=== PATIENT | male | born 1985 | race Caucasian/White ===

== ENCOUNTER 2020-07-29 08:59 | Outpatient (REF) | payer OTHER, SELFPAY ==
[2020-07-29 12:18] LABS: TSH reflex Free T4 0.66 uIU/mL (0.32-4.0)
[2020-07-29 12:22] LABS: Alanine Aminotransferase 34 U/L (0-40); Albumin Level 4.4 g/dL (3.5-5.0); Alkaline Phosphatase 64 U/L (39-117); Anion Gap 10 (12-20); Aspartate Amino Transferase 18 U/L (5-37); Blood Urea Nitrogen 19 mg/dL (9-16); Calcium 8.9 mg/dL (8.4-10.2); Carbon Dioxide 30 mmol/L (22-29); Chloride 105 mmol/L (96-108); Cholesterol 176 mg/dL; Estimated Glomerular Filt Rate > 60; Glucose Fasting 90 mg/dL (60-99); HDL Cholesterol 41 mg/dL; LDL Cholesterol Calculated 116 mg/dl; Sodium 141 mmol/L (135-145); Total Protein 6.6 g/dL (6.5-8.0); Triglycerides 98 mg/dL
== END 2020-07-29 09:00 | disposition home or self-care (01) ==
LOC: HO.HMGCLDS 08:59
PROVIDERS: PCP Nurse Practitioner Family; Visit Provider Nurse Practitioner Family
DX: Z00.00 Encounter for general adult medical examination without abnormal findings (principal)
CPT/HCPCS: 36415; 80053; 80061; 84443

== ENCOUNTER 2021-10-31 12:56 | Outpatient (REF) | payer OTHER, SELFPAY ==
[2021-10-31 13:31] LABS: Binax Internal Control QC Valid; Binax Now Covid-19 Ag Negative (Negative); Binax Performed by: HO.BONILM
[2021-10-31 13:41] LABS: MANUAL DIFF FLAG NO
[2021-10-31 13:50] LABS: Basophils Percent Auto 0.5 % (0-2); Eosinophils Absolute Auto 0.1 X10*3/uL (0.0-0.4); Eosinophils Percent Auto 1.3 % (0-4); Hematocrit 43.7 % (42.0-52.0); Hemoglobin 15.6 g/dl (14.0-18.0); Imm Gran Abs Auto 0.03 X10*3/uL (0.00-0.03); Imm Gran Pct Auto 0.4 % (0.0-0.4); Lymphocytes Absolute Auto 2.3 X10*3/uL (1.2-4.9); Lymphocytes Percent Auto 30.1 % (20-40); Mean Corpuscular HGB Conc 35.7 g/dl (31.0-36.0); Mean Corpuscular Hemoglobin 30.8 pg (27.0-33.0); Mean Corpuscular Volume 86.2 fL (80.0-98.0); Mean Platelet Volume 10.1 fL (9.4-12.4); Monocytes Absolute Auto 0.6 X10*3/uL (0.1-1.2); Monocytes Percent Auto 7.7 % (2-11); Neutrophils Absolute Auto 4.6 x10*3/uL (2.0-8.3); Platelet Count 192 X10*3/uL (160-400); Red Blood Count 5.07 X10*6/uL (4.60-5.80); Red Cell Distribution Width 12.1 % (11.0-16.0); White Blood Count 7.7 X10*3/uL (4.8-10.8)
[2021-10-31 14:09] LABS: Alanine Aminotransferase 61 U/L (0-40); Albumin Level 4.6 g/dL (3.5-5.0); Alkaline Phosphatase 56 U/L (39-117); Anion Gap 12 (12-20); Aspartate Amino Transferase 32 U/L (5-37); Bilirubin Direct 0.6 mg/dL (0.0-0.5); Bilirubin Total 1.8 mg/dL (0.0-1.0); Blood Urea Nitrogen 13 mg/dL (9-16); Calcium 9.6 mg/dL (8.4-10.2); Carbon Dioxide 25 mmol/L (22-29); Chloride 105 mmol/L (96-108); Estimated Glomerular Filt Rate > 60; Glucose Random 92 mg/dL (60-115); Lipase 16 U/L (8-78); Potassium 4.1 mmol/L (3.3-5.1); Sodium 138 mmol/L (135-145); Total Protein 7.1 g/dL (6.5-8.0)
== END 2021-10-31 12:57 | disposition home or self-care (01) ==
LOC: HO.HMGCLDS 12:56
PROVIDERS: PCP Nurse Practitioner Family; Visit Provider Physician Assistant
DX: Z20.822 Contact with and (suspected) exposure to COVID-19 (principal); R19.7 Diarrhea, unspecified; R53.1 Weakness
CPT/HCPCS: 80048; 80076; 83690; 85025; 87811

== ENCOUNTER → 2022-03-08 09:15 | Outpatient (RCR) | payer OTHER, SELFPAY ==
[2020-03-30 18:18] LABS: COVID-19 Test Negative (Negative)
[2020-04-06 08:25] LABS: COVID-19 Test Negative (Negative); IDNOW Serial# 55D5AD1C
[2020-04-13 08:17] LABS: IDNOW Serial# 9DD0AD1C
[2020-04-13 08:18] LABS: COVID-19 Test Positive (Negative)
[2020-05-03 10:02] LABS: SARS-COV-2 PCR UMBRL Not Detected
[2020-05-08 13:55] LABS: SARS-COV-2 PCR UMBRL NOT DETECTED
[2020-05-12 15:03] LABS: COVID-19 Test Negative (Negative); IDNOW Serial# 55D5AD1C
[2020-05-24 12:40] LABS: SARS-COV-2 PCR UMBRL Not Detected
[2020-05-27 09:20] LABS: SARS-COV-2 PCR UMBRL Not Detected
[2020-06-06 09:52] LABS: SARS-COV-2 PCR UMBRL NEGATIVE
[2020-06-11 11:06] LABS: SARS-COV-2 PCR UMBRL NEGATIVE
== END | disposition home or self-care (01) ==
LOC: HO.EMPCOV 03-30 14:18
PROVIDERS: Visit Provider Internal Medicine
DX: Z20.828 Contact with and (suspected) exposure to other viral communicable diseases (principal)
CPT/HCPCS: 36415; 87635; C9803; U0003

== ENCOUNTER 2022-03-28 21:46 | Outpatient (REF) | payer OTHER, SELFPAY ==
[2022-03-28 22:22] LABS: COVID-19 Test Negative (Negative)
== END 2022-03-28 21:47 | disposition home or self-care (01) ==
LOC: HO.LAB 21:46
PROVIDERS: Visit Provider Internal Medicine
DX: Z20.822 Contact with and (suspected) exposure to COVID-19 (principal)
CPT/HCPCS: 87635

== ENCOUNTER 2022-03-30 14:07 | Outpatient (REF) | payer OTHER, SELFPAY ==
[2022-03-30 16:02] LABS: Influenza A PCR NEGATIVE (Negative); Influenza B PCR NEGATIVE (Negative); Resp Syncy Virus RNA Qual PCR NEGATIVE (Negative); SARS COV2 PCR INHOUSE NEGATIVE (Negative)
== END 2022-03-30 14:08 | disposition home or self-care (01) ==
LOC: HO.LNP 14:07
PROVIDERS: Visit Provider Physician Assistant Medical
DX: Z20.822 Contact with and (suspected) exposure to COVID-19 (principal); R09.89 Other specified symptoms and signs involving the circulatory and respiratory systems
CPT/HCPCS: 0241U

== ENCOUNTER 2022-06-26 22:06 | Emergency (ER) | payer OTHER, SELFPAY ==
--- NOTE | ~2022-06-26 | XR_ITS ---
EXAMINATION: PORTABLE CHEST 1 VIEW CLINICAL INFORMATION: cp . COMPARISON: No recent pertinent prior studies are available for comparison. TECHNIQUE: Portable frontal view of the chest was obtained. FINDINGS: The lungs are well expanded. No focal infiltrate, effusion, edema, or pneumothorax. Cardiac and mediastinal silhouettes are within normal limits for technique. No acute bony abnormality seen. XR/XR chest 1V IMPRESSION: No evidence of acute disease.
[2022-06-26 22:16] VITALS: BP 135/79; PULSE 78; RESP 16; TEMP 36.9; O2SAT 98; BMI 26.2
--- NOTE | 2022-06-26 22:22 | ECG_ITS ---
Test Reason : chest pain Blood Pressure : / mmHG Vent. Rate : 067 BPM Atrial Rate : 067 BPM P-R Int : 128 ms QRS Dur : 084 ms QT Int : 374 ms P-R-T Axes : 044 080 046 degrees QTc Int : 395 ms Normal sinus rhythm Normal ECG No previous ECGs available Referred By: Mariah Ferris Electronically Signed By:GIOVANI WEINBERG MD
--- NOTE | 2022-06-26 22:24 | ED_ITS ---
HPI - Chest Pain General Chief Complaint: Chest Pain Stated Complaint: Chest Pain Time Seen by Provider: 06/26/22 22:14 History of Present Illness HPI narrative: Patient is a 36-year-old male presents today with having chest pain. Chest pain is on the left chest it lasted for the last half an hour it is sharp. It is not associated with any diaphoresis. Not associated with shortness of breath. 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 Positive history of smoking quit about 7 years ago. Has about 7 pack year smoking history. Positive family history of coronary artery disease father had GA before the age of 45. Patient denies any history of hypertension, hypercholesterolemia, GA. no history of leg swelling no history of blood clots. No history of recreational drug use. No fever no chills no cough no congestion or upper respiratory symptoms. No long trips. No history of cancer. Related Data Allergies Allergy/AdvReac Type Severity Reaction Status Date / Time No Known Allergies Allergy Verified 03/30/22 09:01 [No Known Allergies*] Review of Systems Review of Systems: Positive chest pain Yes all other systems are reviewed and are negative [facility] Past Medical History Attestation statement: The following information was validated with the patient. Family History Family History Father Colon cancer Heart problem HTN (hypertension) Mother No problems noted. Social History Social History Advance Directives: No Advance Directives Information Provided: Yes Physical Exam Vital Signs: Vital Signs: Last Vital Signs Temp 98.4 F 06/26/22 22:16 Pulse 78 06/26/22 22:16 Resp 16 06/26/22 22:16 BP 135/79 06/26/22 22:16 Pulse Ox 98 06/26/22 22:16 O2 Del Method 06/26/22 22:16 BMI result Body Mass Index 26.2 Appearance: Alert. Oriented X3. No acute distress. Eyes: Pupils equal, round and reactive to light. ENT: Pharynx normal. Neck: Normal inspection. Neck supple. No lymph nodes noted. No crepitus CVS: Normal heart rate and rhythm. Pulses normal. Normal S1 and S2 Respiratory: No respiratory distress. Breath sounds normal. No Wheezing. No rales Abdomen: Soft and nontender. No rigidity. No distention. good BS x4 Skin: Skin warm and dry. Normal skin color. Normal skin turgor. Extremities: No lower extremity edema. Neurovascular intact to all extremities. No Lacerations. No Rash Neuro: Oriented X 3. No motor deficit. No sensory deficit. Moving all extermities. No slurred speech Medications Administered Discontinued Medications Generic Name Dose Route Start Last Admin Trade Name Freq PRN Reason Stop Dose Admin Aspirin 324 mg 06/26/22 22:22 06/26/22 22:38 Aspirin 81 Mg Tab.Chew PO 06/26/22 22:23 324 mg ONCE ONE Administration Medical Decision Making Medical Decision Making [facility] Narrative: Patient's chest pain atypical. He is 36 years old to cardiac risk factors. Negative troponin x2 sets. Normal EKG. Symptoms unlikely secondary ACS as patient's heart score less than 3. Chest x-ray showed no pneumonia no pneumothorax. History not consistent with PE. Will discharge patient home. Stable condition. Differential Diagnosis Pulmonary emboli, pneumonia, pneumothorax, ACS Admission/Observation Consideration of admission/observation: Escalation of care including admission/observation considered Lab Data [facility] Lab Attestation statement: I reviewed the patient's lab results. 06/26/22 22:40 06/26/22 22:40 Labs: Lab Results 06/26/22 06/26/22 06/26/22 Range/Units 22:40 22:40 22:40 WBC 8.6 (4.8-10.8) X10*3/uL RBC 5.36 (4.60-5.80) X10*6/uL Hgb 16.5 (14.0-18.0) g/dl Hct 45.8 (42.0-52.0) % MCV 85.4 (80.0-98.0) fL MCH 30.8 (27.0-33.0) pg MCHC 36.0 (31.0-36.0) g/dl RDW 12.3 (11.0-16.0) % Plt Count 181 (160-400) X10*3/uL MPV 9.7 (9.4-12.4) fL Immature Gran % (Auto) 0.3 (0.0-0.4) % Neut % (Auto) 59.2 (45-73) % Lymph % (Auto) 29.9 (20-40) % [place] % (Auto) 7.7 (2-11) % Eos % (Auto) 2.0 (0-4) % Baso % (Auto) 0.9 (0-2) % Lymph # (Auto) 2.6 (1.2-4.9) X10*3/uL [place] # (Auto) 0.7 (0.1-1.2) X10*3/uL Eos # (Auto) 0.2 (0.0-0.4) X10*3/uL Baso # (Auto) 0.1 (0.0-0.2) X10*3/uL Abs Immat Gran (auto) 0.03 (0.00-0.03) X10*3/uL Absolute Neuts (auto) 5.1 (2.0-8.3) x10*3/uL Absolute Nucleated RBC 0.000 (0.0-0.012) X10*3/uL Nucleated RBC % (auto) 0.0 (0.0-0.2) /100WBC Sodium 141 (135-145) mmol/L Potassium 4.1 (3.3-5.1) mmol/L Chloride 105 (96-108) mmol/L Carbon Dioxide 27 (22-29) mmol/L Anion Gap 13 (12-20) BUN 19 H (9-16) mg/dL Creatinine 0.81 (0.5-1.4) mg/dL Estim Creat Clear Calc 130.1 Estimated GFR > 60 Random Glucose 80 (60-115) mg/dL Calcium 9.2 (8.4-10.2) mg/dL Troponin I High Sens < 3.5 (<3.5-35.0) ng/L 06/27/22 Range/Units 00:28 WBC (4.8-10.8) X10*3/uL RBC (4.60-5.80) X10*6/uL Hgb (14.0-18.0) g/dl Hct (42.0-52.0) % MCV (80.0-98.0) fL MCH (27.0-33.0) pg MCHC (31.0-36.0) g/dl RDW (11.0-16.0) % Plt Count (160-400) X10*3/uL MPV (9.4-12.4) fL Immature Gran % (Auto) (0.0-0.4) % Neut % (Auto) (45-73) % Lymph % (Auto) (20-40) % [place] % (Auto) (2-11) % Eos % (Auto) (0-4) % Baso % (Auto) (0-2) % Lymph # (Auto) (1.2-4.9) X10*3/uL [place] # (Auto) (0.1-1.2) X10*3/uL Eos # (Auto) (0.0-0.4) X10*3/uL Baso # (Auto) (0.0-0.2) X10*3/uL Abs Immat Gran (auto) (0.00-0.03) X10*3/uL Absolute Neuts (auto) (2.0-8.3) x10*3/uL Absolute Nucleated RBC (0.0-0.012) X10*3/uL Nucleated RBC % (auto) (0.0-0.2) /100WBC Sodium (135-145) mmol/L Potassium (3.3-5.1) mmol/L Chloride (96-108) mmol/L Carbon Dioxide (22-29) mmol/L Anion Gap (12-20) BUN (9-16) mg/dL Creatinine (0.5-1.4) mg/dL Estim Creat Clear Calc Estimated GFR Random Glucose (60-115) mg/dL Calcium (8.4-10.2) mg/dL Troponin I High Sens < 3.5 (<3.5-35.0) ng/L Independent Interpretation I performed an independent interpretation of an: EKG Interpretation: Sinus heart rate is 67 LA QRS QT within normal limits is no acute ST segment elevation noted. Discharge Plan Discharge Clinical Impression: Chest pain Patient Disposition: Home, Self-Care Instructions: Chest Pain (ED) Referrals: John Sarah MD [Physician] -
[2022-06-26] MEDS: Aspirin 81 MG TAB.CHEW 324 MG PO (22:38)
[2022-06-26 22:44] LABS: MANUAL DIFF FLAG NO
[2022-06-26 22:52] LABS: Basophils Absolute Auto 0.1 X10*3/uL (0.0-0.2); Basophils Percent Auto 0.9 % (0-2); Eosinophils Absolute Auto 0.2 X10*3/uL (0.0-0.4); Hematocrit 45.8 % (42.0-52.0); Hemoglobin 16.5 g/dl (14.0-18.0); Imm Gran Abs Auto 0.03 X10*3/uL (0.00-0.03); Imm Gran Pct Auto 0.3 % (0.0-0.4); Lymphocytes Absolute Auto 2.6 X10*3/uL (1.2-4.9); Lymphocytes Percent Auto 29.9 % (20-40); Mean Corpuscular Hemoglobin 30.8 pg (27.0-33.0); Mean Corpuscular Volume 85.4 fL (80.0-98.0); Mean Platelet Volume 9.7 fL (9.4-12.4); Monocytes Absolute Auto 0.7 X10*3/uL (0.1-1.2); Monocytes Percent Auto 7.7 % (2-11); Neutrophils Absolute Auto 5.1 x10*3/uL (2.0-8.3); Neutrophils Percent Auto 59.2 % (45-73); Platelet Count 181 X10*3/uL (160-400); Red Blood Count 5.36 X10*6/uL (4.60-5.80); Red Cell Distribution Width 12.3 % (11.0-16.0); White Blood Count 8.6 X10*3/uL (4.8-10.8)
[2022-06-26 23:05] LABS: Anion Gap 13 (12-20); Blood Urea Nitrogen 19 mg/dL (9-16); Calcium 9.2 mg/dL (8.4-10.2); Carbon Dioxide 27 mmol/L (22-29); Chloride 105 mmol/L (96-108); Creatinine Clr Calc Pharmacy 130.1; Estimated Glomerular Filt Rate > 60; Glucose Random 80 mg/dL (60-115); Potassium 4.1 mmol/L (3.3-5.1); Sodium 141 mmol/L (135-145)
[2022-06-26 23:19] LABS: Troponin-I High Sensitivity < 3.5 ng/L (<3.5-35.0)
[2022-06-27 01:01] LABS: Troponin-I High Sensitivity < 3.5 ng/L (<3.5-35.0)
== END 2022-06-27 01:40 | disposition home or self-care (01) ==
PROVIDERS: Emergency Provider Emergency Medicine Emergency Medical Services; PCP Nurse Practitioner Family
DX: R07.9 Chest pain, unspecified (principal); Z87.891 Personal history of nicotine dependence
CPT/HCPCS: 36415; 71045; 80048; 84484; 85025; 93005; 99283

== ENCOUNTER 2022-11-09 12:23 | Outpatient (REF) | payer OTHER, SELFPAY ==
--- NOTE | ~2022-11-09 | XR_ITS ---
EXAMINATION: XR HAND, LEFT CLINICAL INFORMATION: Left COMPARISON: None available. TECHNIQUE: PA, lateral, and oblique views of the left hand. FINDINGS: No fracture, dislocation or destructive process. Joint spaces are well preserved. No erosive change. XR/XR hand LT min 3V IMPRESSION: Unremarkable study.
== END 2022-11-09 12:24 | disposition home or self-care (01) ==
LOC: HO.HMGCX 12:23
PROVIDERS: PCP Nurse Practitioner Family; Visit Provider Physician Assistant
DX: M79.642 Pain in left hand (principal)
CPT/HCPCS: 73130

== ENCOUNTER 2022-11-27 10:09 | Outpatient (AMB) | payer OTHER, SELFPAY ==
--- NOTE | 2022-11-27 10:48 | MHC.OFFWIV ---
Intake Vital Signs 11/27/22 10:52 BP 130/86 Blood Pressure Location Lt brachial Position Sitting Pulse 86 Pulse Source Pulse Oximeter Pulse Oximetry (%) 97 Oxygen Delivery Method Room Air Intake Visit Reasons: EP, Right Ankle, swelling, pinky toe Inj Intake Note: Patient here because he fell off a platform while dancing and heard a pop and has been unable to put pressure on right foot. He also states his pinky toe on left foot is broken as it is very bruised . Patient Tobacco Use Status: Former Tobacco user (10 years ago) Allergies No Known Allergies [No Known Allergies*] Allergy (Verified 11/27/22 10:52) Do you need a note to return to daycare/school/sports/work: Yes HPI EP, Right Ankle, swelling, pinky toe Inj HPI Details 37-year-old male presents to the office for a sick visit. Patient fell 2 nights ago and injured his right foot. He is unable to bear weight on the right foot. Using crutches and now has discomfort in the left foot as he has been bearing extra weight on the left foot. [facility] Family History Father Colon cancer Heart problem HTN (hypertension) Mother No problems noted. Social History Patient Tobacco Use Status: Former Tobacco user (10 years ago) Physical Exam Vital Signs: Last Vital Signs Pulse 86 11/27/22 10:52 BP 130/86 11/27/22 10:52 Pulse Ox 97 11/27/22 10:52 Oxygen Delivery Method Room Air 11/27/22 10:52 Extrem Other: Right foot: Bruising over the foot with bluish discoloration at the margin. Malleolli are swollen. Extreme pain on flexion. Left foot: Bruising and contusion over the left 5th toe. Pain on flexion. Assessment & Plan Assessment & Plan (1) Fracture of ankle, bimalleolar, right, closed: Code(s): S82.841A - Displaced bimalleolar fracture of right lower leg, initial encounter for closed fracture Plan: X-rays were personally reviewed by me. Patient has a fracture at the malleoli. Anti-inflammatory called in. Patient had orthopedic appointment scheduled. Meloxicam has been called in. Note for work given. Orders: Orders XR ankle RT min 3V Today S90.30XA - Contusion of unspecified foot, initial encounter, S93.401A - Sprain of unspecified ligament of right ankle, initial encounter Referrals Orthopedics Referral S82.841A - Displaced bimalleolar fracture of right lower leg, initial encounter for closed fracture Coding Level of Care Code Est Pt Level 4 (19890) Diagnoses Fracture of ankle, bimalleolar, right, closed S82.841A
[2022-11-27 10:52] VITALS: BP 130/86; PULSE 86; O2SAT 97
== END 2022-11-27 11:58 | disposition home or self-care (01) ==
PROVIDERS: PCP Nurse Practitioner Family; Visit Provider Internal Medicine
DX: S82.841A Displaced bimalleolar fracture of right lower leg, initial encounter for closed fracture (principal)
CPT/HCPCS: 99214

== ENCOUNTER 2022-11-27 11:16 | Outpatient (REF) | payer OTHER, SELFPAY | END 2022-11-27 11:17 | disposition home or self-care (01) | LOC: HO.HMGCX 11:16 | PROVIDERS: PCP Nurse Practitioner Family; Visit Provider Internal Medicine | DX: S93.401A Sprain of unspecified ligament of right ankle, initial encounter (principal); S90.32XA Contusion of left foot, initial encounter | CPT/HCPCS: 73610; 73630 ==

== ENCOUNTER 2022-12-07 14:22 | Outpatient (AMB) | payer OTHER, SELFPAY ==
--- NOTE | 2022-12-07 14:50 | A.OFFVIS_ITS ---
Intake Intake Visit Reasons: FC - right ankle fx, DOI 11/27/22 Intake Note: Marlon is a 37 year old male who presents today for a fracture care for his right ankle fx, DOI 11/27/22. Patient reports he fell off a platform while dancing and heard a pop and has been unable to put pressure on right foot. He states his pain is at a 2/10 on the pain scale. Patient reports his ROM is good. Denies numbness and tingling. Allergies No Known Allergies [No Known Allergies*] Allergy (Verified 12/07/22 14:52) HPI FC - right ankle fx, DOI 11/27/22 HPI Details 37-year-old right hand dominant male who presents in the office today, as a new patient, for an evaluation of right ankle pain. The patient presented to the Walk-in clinic on 11/27/2022 status post falling off a platform while dancing when in [place] on a vacation. X-rays were obtained. He states he was not given anything for the ankle. He purchased a splint OTC that he has been wearing. He states he has not been bearing weight on the right lower extremity. He states his pain is a 2/10 while in the office today. He claims his ROM is good. He denies numbness or tingling. 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 Patient has no known allergy history. Patient is currently taking, as follows: -Venlafaxine ER 150 mg PO bedtime Patient has no known medical history. Patient has no known surgical history. Patient has a social history, as follows: -Prior tobacco user (10 years ago) -Alcohol; current [facility] Family History Father Colon cancer Heart problem HTN (hypertension) Mother No problems noted. Social History (Updated 12/07/22 @ 14:54 by Carli Myers) Alcohol intake: current Patient Tobacco Use Status: Former Tobacco user (10 years ago) Current occupational status: employed Current occupation: Nurse/ right hand dominant Review of Systems Const All systems reviewed & are unremarkable except as noted in HPI and below Physical Exam Const General: cooperative, healthy appearing, comfortable, no acute distress, well developed and alert Orientation/consciousness: patient oriented x3 HEENT Head: Yes normal to inspection, Yes normocephalic and Yes atraumatic Eyes General: appearance normal, both eyes and all related structures Resp Effort & Inspection: normal respiratory effort and able to speak in complete sentences Cardio Rate: regular rate Peripheral pulses: Peripheral pulses 2+ throughout GI Palpation (GI): Soft to palpation Skin Lesions: no lesions Rashes: no rashes Neuro General: patient oriented x3 Extrem Other: Right ankle: Circumferential edema. Tenderness to palpation over the medial and lateral malleolus. Able to move all digits. Sensation intact. Pedal pulse intact. Office Procedures Casting/Splints [id number] Leg splint application Procedure code (CPT) selection complete Assessment & Plan Assessment & Plan (1) Fracture of ankle, bimalleolar, right, closed: Code(s): S82.841A - Displaced bimalleolar fracture of right lower leg, initial encounter for closed fracture Plan Mr. Landis is a 37-year-old right hand dominant male who presents in the office today, as a new patient, for an evaluation of right ankle pain. The patient presented to the Walk-in clinic on 11/27/2022 status post falling off a platform while dancing when in [place] on a vacation. X-rays were obtained. He states he was not given anything for the ankle. He purchased a splint OTC that he has been wearing. He states he has not been bearing weight on the right lower extremity. He states his pain is a 2/10 while in the office today. He claims his ROM is good. He denies numbness or tingling. 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 Patient has no known allergy history. Patient is currently taking, as follows: -Venlafaxine ER 150 mg PO bedtime Patient has no known medical history. Patient has no known surgical history. Patient has a social history, as follows: -Prior tobacco user (10 years ago) -Alcohol; current Dr. Burgos was available to see the patient with me while in the office today and a collaborative treatment plan was made. He discussed the role of a right ankle ORIF. I discussed in detail the procedure and what to expect pre and post operatively. We discussed the risks, benefits and alternatives to the surgery as well as the rehabilitation course. The risks; which include, but are not limited to infecti on, bleeding, nerve injury, ongoing pain, swelling, and stiffness, perioperative risk of injury to bones and soft tissues, and blood clots. I have answered all questions and with their understanding they have consented to move forward with a right ankle ORIF to be performed on Sunday12/12/[address] Bob Burgos. He will be placed in a posterior splint, off the shelf, while in the office toda y. Follow up will be at his post operative appointment, or sooner if needed. X-rays of the right ankle which were obtained while in the office today and were reviewed by me, Vandana Blanco PA-C, are significant for a right ankle trimalleolar fracture. X-rays of the right ankle, obtained on 11/27/2022, revealed: Mildly displaced, oblique fracture through the distal fibular metaphysis. Mildly displaced medial malleolar fracture with the fracture gap measuring up to 0.5 cm. Circumferential soft tissue swelling. Orders: Orders XR ankle RT min 3V Today M25.579 - Pain in unspecified ankle and joints of unspecified foot Patient Instructions: Scribed for Vandana Blanco PA-C by Aminata Nicholas ophthalmic medical technologist, on 12/07/2022 at 2:28 pm, EST. Your attestation Coding Level of Care Code New Pt Level 4 (10790) Diagnoses Fracture of ankle, bimalleolar, right, closed S82.841A CPT Codes Splint - CPT: 52429-Fjrwy Leg splint application ([id number])
== END 2022-12-07 15:41 | disposition home or self-care (01) ==
PROVIDERS: PCP Nurse Practitioner Family; Visit Provider Physician Assistant
DX: S82.841A Displaced bimalleolar fracture of right lower leg, initial encounter for closed fracture (principal)
CPT/HCPCS: 99204

== ENCOUNTER 2022-12-07 14:22 | Outpatient (REF) | payer OTHER, SELFPAY ==
--- NOTE | ~2022-12-07 | XR_ITS ---
EXAMINATION: XR ANKLE, RIGHT CLINICAL INFORMATION: Right ankle pain. COMPARISON: 11/27/2022 TECHNIQUE: AP, lateral, and mortise views of the right ankle. FINDINGS: Right Ankle: Redemonstration of mildly displaced, oblique fracture through the distal fibular metaphysis with up to 0.7 cm step-off posteriorly, similar. Redemonstration of mildly displaced medial malleolar fracture with the fracture gap again measuring up to 0.5 cm. Fracture line extends to the tibial plafond articular surface, ankle joint effusion. Diffuse soft tissue swelling at the ankle. XR/XR ankle RT min 3V IMPRESSION: 1. Redemonstration of mildly displaced, oblique fracture through the distal fibular metaphysis with up to 0.7 cm step-off posteriorly, similar. 2. Redemonstration of mildly displaced medial malleolar fracture with the fracture gap again measuring up to 0.5 cm, similar.
== END 2022-12-07 14:23 | disposition home or self-care (01) ==
LOC: HO.HOSX 14:22
PROVIDERS: PCP Nurse Practitioner Family; Visit Provider Physician Assistant
DX: Z01.818 Encounter for other preprocedural examination (principal); S82.841A Displaced bimalleolar fracture of right lower leg, initial encounter for closed fracture
CPT/HCPCS: 73610

== ENCOUNTER 2022-12-12 07:25 | Day surgery (SDC) | payer OTHER, SELFPAY ==
[2022-12-12] VITALS (9 sets, daily range): BP systolic 99–119; BP diastolic 62–79; PULSE 72–89; RESP 16–18; TEMP 36.2–37.3; O2SAT 95–98; BMI 25.8
--- NOTE | ~2022-12-12 | FL_ITS ---
EXAMINATION: XR FLUOROSCOPY WITH IMAGES CLINICAL INFORMATION: Right ankle open reduction and internal fixation. COMPARISON: Radiograph's of the ankle from 12/07/2022 TECHNIQUE: Fluoroscopy Supervised By: Dr. Burgos. Fluoroscopy Time: 0.3 minutes Cumulative Dose: 1.26 mGy. DAP: 0.0218 mGym2. Images: 3. FL/FL guidance in OR FINDINGS AND IMPRESSION: Intraoperative fluoroscopic imaging of the right ankle is performed. Two partially threaded cannulated fixation screws have reduced the medial malleolar fracture. Lateral fibular plate and screws have reduced the spiral fracture of the distal fibular metadiaphysis into near anatomic position. Bones have normal alignment at the ankle. The talus is well-positioned within the mortise on these postoperative views.
[2022-12-12] MEDS: Lactated Ringers 1,000 ML 100 ML IVCONT (08:09)
--- NOTE | 2022-12-12 08:46 | HO.ANESPROP2 ---
Documented by User: Jovita Nunes NP 12/11/22 08:29 HPI - Anesthesia Eval Consult details Narrative: 37yo M for Right Ankle Fracture ORIF PMFSH Active Problems Active Problems: All Active Problems (Updated 11/27/22 @ 11:48 by Osiel Burgos MD) Fracture of ankle, bimalleolar, right, closed (Acute) Contusion, foot (Acute) Physical exam (Acute) Depression (Acute) Family History Family History Father Colon cancer Heart problem HTN (hypertension) Mother No problems noted. Social History Social History Alcohol intake: current Patient Tobacco Use Status: Former Tobacco user Quit Date: 12 years Use of substances other than those prescribed or required for medical reasons: Yes Are you DNR?: No Advance Directives: No Advance Directives Information Provided: Yes Current occupational status: employed Current occupation: Nurse/ right hand dominant Meds Allergies Allergy/AdvReac Type Severity Reaction Status Date / Time No Known Allergies Allergy Verified 12/07/22 14:52 [No Known Allergies*] Home Medications Medication Instructions Recorded Confirmed Last Taken Type venlafaxine 150 mg 150 mg PO BEDTIME 11/09/22 12/12/22 12/11/22 History capsule,extended release 24 hr (Effexor XR) Exam Exam Date and Time: December 11, 2022827 Pertinent Lab Results Pertinent Lab Results: Laboratory Tests 06/26/22 06/26/22 22:40 22:40 WBC 8.6 Hgb 16.5 Hct 45.8 Plt Count 181 Sodium 141 Potassium 4.1 Chloride 105 Carbon Dioxide 27 BUN 19 H Creatinine 0.81 Assessment and Plan Assessment Anesthesia Assessment: Chart Reviewed Documented by User: Rachel Zarco DO 12/12/22 08:46 PMFSH Family History Family History Father Colon cancer Heart problem HTN (hypertension) Mother No problems noted. Family history of problems with anesthesia: No Surgical History History of Problems with Anesthesia: No Social History Social History Alcohol intake: current Patient Tobacco Use Status: Former Tobacco user Quit Date: 12 years Use of substances other than those prescribed or required for medical reasons: Yes Are you DNR?: No Advance Directives: No Advance Directives Information Provided: Yes Current occupational status: employed Current occupation: Nurse/ right hand dominant Meds Allergies Allergy/AdvReac Type Severity Reaction Status Date / Time No Known Allergies Allergy Verified 12/07/22 14:52 [No Known Allergies*] Home Medications Medication Instructions Recorded Confirmed Last Taken Type venlafaxine 150 mg 150 mg PO BEDTIME 11/09/22 12/12/22 12/11/22 History capsule,extended release 24 hr (Effexor XR) Exam Exam Date and Time: December 12, 2022 0835 Height,Weight and Vital Signs: Height 5 ft 10 in Weight 81.647 kg Vital Signs Temperature 97.2 F 12/12/22 08:01 Pulse Rate 72 12/12/22 08:01 Respiratory Rate 18 12/12/22 08:01 Blood Pressure 119/79 12/12/22 08:01 Pulse Oximetry 97 12/12/22 08:01 Oxygen Delivery Method Room Air 12/12/22 08:01 Temperature 97.2 F 12/12/22 08:01 Pulse Rate 72 12/12/22 08:01 Respiratory Rate 18 12/12/22 08:01 Blood Pressure 119/79 12/12/22 08:01 Pulse Oximetry 97 12/12/22 08:01 Oxygen Delivery Method Room Air 12/12/22 08:01 Airway Mallampati Class: II TM Dist: >3cm Neck ROM: Full Loose/Missing/Broken Teeth: No Heart: S1S2 Lungs: CTAB Assessment and Plan Assessment Anesthesia Assessment: Anesthesia Plan Discussed and Chart Reviewed Final Anesthetic Review Family History of Problems with Anesthesia: No History of Problems with Anesthesia: No NPO: Yes ASA Class: I Final Preanesthetic Review: No Changes in Pt Med Stat, Meds/Allgs Chart Reviewed, Consent Obtained/Reviewed and Anes Risks/Benef Reviewed Patient Risk: Low Procedure Risk: Low Assessment/Block/Sedation in SS: Assess/Block/Sedation-SS Anesthetic Plan Anesthetic Plan: GA, Regional Block (right sciatic and saphenous block) and Agree w/ Assess. and Plan Disposition: Standard PACU
--- NOTE | 2022-12-12 09:27 | MHC.SHP ---
Pre-Procedural Eval Section A Date of Service: 12/12/22 The patient is an INPATIENT: No Changes since office visit: No Cold of Flu in the past 2 weeks, No New Medical Problems, No Changes in Medication and No Patient answered all questions The History & Physical has been completed within 30 days and I have reviewed it.: Yes Section B Chief Complaint: Pain in unspecified ankle & joints of unspecified Allergies: Allergies Allergy/AdvReac Type Severity Reaction Status Date / Time No Known Allergies Allergy Verified 12/07/22 14:52 [No Known Allergies*] Plan I have reviewed the history and physical and performed a pertinent physical examination on my patient. No changes have occurred unless specified. Time Spent With Patient Time: Total time managing care of this patient today ____ minutes.
--- NOTE | 2022-12-12 11:16 | P.BOP_ITS ---
Brief Operative Note Date of Service: 12/12/22 Pre-op diagnosis: right daniella Post-op diagnosis: same Procedure: ORIF right daniella Implants: [place] Surgeon: Bob Burgos MD Anesthesia: GETA and regional Was an Commercial Front Load Operator used for this Procedure?: Yes Commercial Front Load Operator: Edmond Mosley Estimated blood loss (mL): 50 Tourniquet time (min): 75 IV fluids (mL): 1,000 Pathology: none sent Condition: stable Disposition: PACU
--- NOTE | 2022-12-12 11:26 | P.OP_ITS ---
Operative Note Operative Note Date of Service: 12/12/22 Narrative: Date of Service: 12/12/22 Pre-op diagnosis: right daniella Post-op diagnosis: same Procedure: ORIF right daniella Implants: [place] Surgeon: Bob Burgos MD Anesthesia: GETA and regional Was an Associate Partner used for this Procedure?: Yes Associate Partner: Edmond Mosley Estimated blood loss (mL): 50 Tourniquet time (min): 75 IV fluids (mL): 1,000 Pathology: none sent Condition: stable Disposition: PACU Procedure in detail: Patient was brought to the operating room and placed supine on the operative table. All bony prominences were well padded and a time-out was called to identify proper site proper procedure proper surgeon. IV antibiotics per weight were administered. I began by exsanguinating limb is slightly tourniquet to 300 mm Hg. I then made a standard posterolateral incision over the fibula. Full- thickness flaps were taken down to the fibular shaft and distal fibula. The fracture was identified and cleaned with a combination of curette, rongeur and irrigation. A lobster claw was used to provisionally reduce the fracture and a 6 hole distal fibular locking plate was applied using standard AO technique. Biplanar fluoroscopy was used to confirm hardware position and fracture reduction. Once I was satisfied that both of these were acceptable I irrigated copiously and turned my attention to the medial side. The transverse medial malleolar fracture was identified after skin incision. Full-thickness skin flaps were developed and, With a sharp tenaculum, the fracture was reduced. 2 threaded K-wires were then placed from distal to proximal and perpendicular to the fracture. Biplanar fluoroscopy was used to confirm positioning and then they were overdrilled and 2 40 mm 4.0 partially- threaded cannulated cancellous screws were placed across the fracture. I was satisfied with the position and the fracture reduction based on biplanar fluoroscopy. This syndesmosis was tested using external rotation test and was found to be stable. Therefore all instrumentation was removed and copious irrigation was performed. Absorbable suture and nate were used for closure and the patient was placed into sterile dressings and a well-padded posterior splint. Tourniquet was let down and the patient was extubated brought to recovery room in stable condition there were no known complications.
== END 2022-12-12 13:30 | disposition home or self-care (01) ==
PROVIDERS: PCP Nurse Practitioner Family; Visit Provider Orthopaedic Surgery
PROC: (CPT 27814; principal; 2022-12-12 09:40)
DX: S82.841A Displaced bimalleolar fracture of right lower leg, initial encounter for closed fracture (principal); M25.571 Pain in right ankle and joints of right foot; W17.89XA Other fall from one level to another, initial encounter; Y93.41 Activity, dancing; Y92.89 Other specified places as the place of occurrence of the external cause; Y99.8 Other external cause status; Z87.891 Personal history of nicotine dependence
CPT/HCPCS: 27814; C1713; J0131; J0171; J0690; J1100; J2250; J2405; J2795; J3010

== ENCOUNTER → 2022-12-12 07:25 | Outpatient (BNV) | payer OTHER, SELFPAY | PROVIDERS: PCP Nurse Practitioner Family; Visit Provider Orthopaedic Surgery | DX: S82.841A Displaced bimalleolar fracture of right lower leg, initial encounter for closed fracture (principal) | CPT/HCPCS: 27814 ==

== ENCOUNTER 2022-12-19 14:22 | Outpatient (AMB) | payer OTHER, SELFPAY ==
--- NOTE | 2022-12-19 14:25 | A.OFFVIS_ITS ---
Intake Vital Signs 12/19/22 14:31 Height 5 ft 10 in Weight 185 lb BMI 26.5 Intake Visit Reasons: PO RT ANKLE ORIF 12/12/22NE Intake Note: Marlon is a 37 year old male who presents today for a post op appointment s/p ORIF right daniella, 12/12/22 NE. Patient reports no pain at the moment but having more discomfort during the night. Denies numbness and tingling. Allergies No Known Allergies [No Known Allergies*] Allergy (Verified 12/19/22 14:31) HPI PO RT ANKLE ORIF 12/12/22NE HPI Details 37-year-old right hand dominant male who presents in the office today 1 week status post right ankle ORIF, which was performed on 12/12/[address] Burgos. The patient reports no pain while in the office today. He confirms discomfort during the night. He denies numbness or tingling. PFSH Family History Father Colon cancer Heart problem HTN (hypertension) Mother No problems noted. Social History Alcohol intake: current Patient Tobacco Use Status: Former Tobacco user Quit Date: 12 years Current occupational status: employed Current occupation: Nurse/ right hand dominant Review of Systems Const All systems reviewed & are unremarkable except as noted in HPI and below Physical Exam Vital Signs: BMI result Body Mass Index 26.5 Const General: cooperative, healthy appearing and no acute distress Resp Effort & Inspection: normal respiratory effort and able to speak in complete sentences Cardio Rate: regular rate Peripheral pulses: Peripheral pulses 2+ throughout GI Palpation (GI): Soft to palpation Skin Lesions: no lesions Rashes: no rashes Extrem Other: Right ankle: Incision site is clean, dry, and intact. [place] intact. No surrounding erythema or drainage. No signs of infection. Able to dorsiflex and plantarflex. Sensation intact. Pedal pulse intact. Assessment & Plan Assessment & Plan (1) Fracture of ankle, bimalleolar, right, closed: Code(s): S82.841A - Displaced bimalleolar fracture of right lower leg, initial encounter for closed fracture Plan Mr. Landis is a 37-year-old right hand dominant male who presents in the office today 1 week status post right ankle ORIF, which was performed on 12/12/[address] Burgos. The patient reports no pain while in the office today. He confirms discomfort during the night. He denies numbness or tingling. [place] will remain intact for an additional week. He was placed back into the posterior splint that was custom molded in the operating room. He will remain non-weight bearing. Follow up will be in 1 weeks with repeat x-rays, or sooner if needed. Patient Instructions: Scribed for Vandana Blanco PA-C by Aminata Nicholas medical anthropology director, on 12/19/2022 at 2:26 pm, EST. Your attestation Coding Level of Care Code Global (30106) Diagnoses Fracture of ankle, bimalleolar, right, closed S82.841A
[2022-12-19 14:31] VITALS: BMI 26.5
== END 2022-12-19 14:56 | disposition home or self-care (01) ==
PROVIDERS: PCP Nurse Practitioner Family; Visit Provider Physician Assistant
DX: S82.841A Displaced bimalleolar fracture of right lower leg, initial encounter for closed fracture (principal)
CPT/HCPCS: 99024

== ENCOUNTER → 2022-12-19 14:22 | Outpatient (BNVA) | payer OTHER, SELFPAY | PROVIDERS: PCP Nurse Practitioner Family; Visit Provider Physician Assistant ==

== ENCOUNTER 2022-12-25 11:17 | Outpatient (REF) | payer OTHER, SELFPAY | END 2022-12-25 11:18 | disposition home or self-care (01) | LOC: HO.HOSX 11:17 | PROVIDERS: Visit Provider Physician Assistant | DX: Z13.89 Encounter for screening for other disorder (principal) ==

== ENCOUNTER 2022-12-28 12:53 | Outpatient (REF) | payer OTHER, SELFPAY ==
--- NOTE | ~2022-12-28 | XR_ITS ---
EXAMINATION: XR ANKLE, RIGHT CLINICAL INFORMATION: Pain in unspecified ankle and joints of unspecified foot COMPARISON: Right ankle 12/07/2022 TECHNIQUE: AP, lateral, and mortise views of the right ankle. FINDINGS: Plate and screws are seen transfixing a oblique fracture the distal fibular metaphysis skin nate are seen over this area. Ghost tracks are also seen in the distal fibular metaphysis. 2 screws transfix previously noted medial malleolar fracture. Skin nate are noted over this area. The ankle mortise is well-maintained. There is a small ankle joint effusion. The hardware is intact. No new acute bony abnormality. XR/XR ankle RT min 3V IMPRESSION: Status post ORIF distal fibula and medial malleolus without evidence of hardware complication.
== END 2022-12-28 12:54 | disposition home or self-care (01) ==
LOC: HO.HOSX 12:53
PROVIDERS: Visit Provider Physician Assistant
DX: S82.841D Displaced bimalleolar fracture of right lower leg, subsequent encounter for closed fracture with routine healing (principal)
CPT/HCPCS: 29405; 73610

== ENCOUNTER 2022-12-28 13:41 | Outpatient (AMB) | payer OTHER, SELFPAY ==
--- NOTE | 2022-12-28 13:42 | MHC.OFFVIS ---
Intake Vital Signs 12/28/22 13:43 Height 5 ft 10 in Weight 185 lb BMI 26.5 Intake Visit Reasons: PO RT ANKLE ORIF 12/12/22NE Intake Note: Marlon is a 37 year old male who presents today for a post op appointment s/p ORIF right daniella, 12/12/22 NE. Patient reports some discomfort at night near the incision site. He states that his pain is at a 1/10 on the pain scale. Allergies No Known Allergies [No Known Allergies*] Allergy (Verified 12/28/22 13:43) HPI PO RT ANKLE ORIF 12/12/22NE HPI Details 37-year-old right hand dominant male who presents in the office today 2 week status post right ankle ORIF, which was performed on 12/12/[address] Burgos. The patient reports some discomfort. Patient is an employee at [employer]. [facility] Family History Father Colon cancer Heart problem HTN (hypertension) Mother No problems noted. Social History Alcohol intake: current Patient Tobacco Use Status: Former Tobacco user Quit Date: 12 years Current occupational status: employed Current occupation: Nurse/ right hand dominant Review of Systems Const All systems reviewed & are unremarkable except as noted in HPI and below Physical Exam Vital Signs: BMI result Body Mass Index 26.5 Const General: cooperative, healthy appearing and no acute distress Resp Effort & Inspection: normal respiratory effort and able to speak in complete sentences Cardio Rate: regular rate Peripheral pulses: Peripheral pulses 2+ throughout GI Palpation (GI): Soft to palpation Skin Lesions: no lesions Rashes: no rashes Extrem Other: Right ankle: Normal to inspection. Circumfrencial edema. Incision site is clean, dry, and intact. Staple intact. No surrounding erythema or drainage. Able to slightly dorsiflex and plantarflex. Sensation intact. Pedal pulse intact. Office Procedures Casting/Splints 74203-[id number] Leg Cast Application Procedure code (CPT) selection complete Assessment & Plan Assessment & Plan (1) Fracture of ankle, bimalleolar, right, closed: Comment: Right ankle ORIF 12/12/2022 NE Code(s): S82.841A - Displaced bimalleolar fracture of right lower leg, initial encounter for closed fracture Plan Mr. Landis is a 37-year-old right hand dominant male who presents in the office today 2 week status post right ankle ORIF, which was performed on 12/12/[address] Burgos. The patient reports some discomfort. Patient is an employee at [employer]. [place] were removed and steri-stripes were applied. He was placed in custom made short leg cast while in the office today. He will remain non-weight bearing. Follow up will be in 4 weeks, or sooner if needed. Of note: The office will pull the [facility] paperwork for the patient and will have it filled out and returned to him in the next day or two. X-rays of the right ankle which were obtained while in the office today and were reviewed by me, Vandana Blanco PA-C, revealed orthopedic hardware intact with routine healing. Orders: Orders XR ankle RT min 3V Today M25.579 - Pain in unspecified ankle and joints of unspecified foot Patient Instructions: Scribed for Vandana Blanco PA-C by Aminata Nicholas medical receptionist medical assistant, on 12/28/2022 at 1:44 pm, EST. Coding Level of Care Code Global (93841) Diagnoses Fracture of ankle, bimalleolar, right, closed S82.841A CPT Codes Casting - CPT: 12396-[id number] Leg Cast Application ([id number])
[2022-12-28 13:43] VITALS: BMI 26.5
== END 2022-12-28 14:55 | disposition home or self-care (01) ==
PROVIDERS: PCP Nurse Practitioner Family; Visit Provider Physician Assistant
DX: S82.841A Displaced bimalleolar fracture of right lower leg, initial encounter for closed fracture (principal)
CPT/HCPCS: 29405; 99024

== ENCOUNTER 2023-01-30 08:30 | Outpatient (REF) | payer OTHER, SELFPAY ==
--- NOTE | ~2023-01-30 | XR_ITS ---
EXAMINATION: XR ANKLE, RIGHT CLINICAL INFORMATION: Pain COMPARISON: 12/28/2022 TECHNIQUE: AP, lateral, and mortise views of the right ankle. FINDINGS: Surgical skin nate have been removed. Soft tissue swelling has improved. Stable side plate and screws traversing nondisplaced distal fibular fracture with mild developing sclerosis posteriorly. Ghost tracks from previous screws again seen. Stable screws medial malleolus. No evidence of loosening or failure. Mortise remains intact. XR/XR ankle RT min 3V IMPRESSION: Postoperative right ankle without evidence of complication.
== END 2023-01-30 08:31 | disposition home or self-care (01) ==
LOC: HO.HOSX 08:30
PROVIDERS: Visit Provider Physician Assistant
DX: S82.841D Displaced bimalleolar fracture of right lower leg, subsequent encounter for closed fracture with routine healing (principal)
CPT/HCPCS: 73610

== ENCOUNTER 2023-01-30 14:22 | Outpatient (AMB) | payer OTHER, SELFPAY ==
[2023-01-30 14:24] VITALS: BMI 26.5
--- NOTE | 2023-01-30 14:24 | A.OFFVIS_ITS ---
Intake Vital Signs 01/30/23 14:24 Height 5 ft 10 in Weight 185 lb BMI 26.5 Intake Visit Reasons: PO RT ANKLE ORIF 12/12/22NE Intake Note: Marlon is a 37 year old male who presents today for a post op appointment s/p ORIF right daniella, 12/12/22 NE. Patient reports no pain or discomfort. Denies numbness and tingling. Allergies No Known Allergies [No Known Allergies*] Allergy (Verified 01/30/23 14:48) HPI PO RT ANKLE ORIF 12/12/22NE HPI Details 37-year-old right hand dominant male who presents in the office today 7 weeks status post right ankle open reduction internal fixation, which was performed on 12/12/[address] Burgos. The patient reports no pain or discomfort while in the office today. He denies numbness or tingling. Patient is an employee at [employer] [facility] Family History Father Colon cancer Heart problem HTN (hypertension) Mother No problems noted. Social History Alcohol intake: current Patient Tobacco Use Status: Former Tobacco user Quit Date: 12 years Current occupational status: employed Current occupation: Nurse/ right hand dominant Review of Systems Const All systems reviewed & are unremarkable except as noted in HPI and below Physical Exam Vital Signs: BMI result Body Mass Index 26.5 Const General: cooperative, healthy appearing and no acute distress Resp Effort & Inspection: normal respiratory effort and able to speak in complete sentences Cardio Rate: regular rate Peripheral pulses: Peripheral pulses 2+ throughout GI Palpation (GI): Soft to palpation Skin Lesions: no lesions Rashes: no rashes Extrem Other: Right ankle: Incision site is clean, dry, and intact. No surrounding erythema or drainage. Slightly able to dorsiflex, plantarflex, pronate, and supinate. Sen sation intact. Pedal pulse intact. Assessment & Plan Assessment & Plan (1) Fracture of ankle, bimalleolar, right, closed: Comment: Right ankle ORIF 12/12/2022 NE Code(s): S82.841A - Displaced bimalleolar fracture of right lower leg, initial encounter for closed fracture Qualifiers: Encounter type: subsequent encounter Fracture healing: with routine healing Qualified Code(s): S82.841D - Displaced bimalleolar fracture of right lower leg, subsequent encounter for closed fracture with routine healing Plan Mr. Landis is a 37-year-old right hand dominant male who presents in the office today 7 weeks status post right ankle open reduction internal fixation, which was performed on 12/12/[address] Burgos. The patient reports no pain or discomfort while in the office today. He denies numbness or tingling. Patient is an employee at [employer] The patient will transition to a tall walking boot, which was provided in the office today, off the shelf. He may weight bear as tolerated. I referred him to physical therapy to work on ROM. He will remain out of work until follow up. Follow up in 6 weeks, or sooner if needed. X-rays of the right ankle which were obtained while in the office today and were reviewed by me, Vandana Blanco PA-C, revealed intact orthopedic hardware with routine healing. Orders: Orders XR ankle RT min 3V Today M25.579 - Pain in unspecified ankle and joints of unspecified foot PT Evaluation and Treatment Today S82.841A - Displaced bimalleolar fracture of right lower leg, initial encounter for closed fracture Patient Instructions: Scribed for Vandana Blanco PA-C by Aminata Nicholas medical practitioners, on 01/30/2023 at 2:32 pm, EST. Coding Level of Care Code Global (04893) Diagnoses Closed bimalleolar fracture of right ankle with routine healing, subsequent encounter S82.841D Encounter type: subsequent encounter Fracture healing: with routine healing
== END 2023-01-30 15:11 | disposition home or self-care (01) ==
PROVIDERS: PCP Nurse Practitioner Family; Visit Provider Physician Assistant
DX: S82.841D Displaced bimalleolar fracture of right lower leg, subsequent encounter for closed fracture with routine healing (principal)
CPT/HCPCS: 99024

== ENCOUNTER 2023-03-15 13:57 | Outpatient (AMB) | payer OTHER, SELFPAY ==
--- NOTE | 2023-03-15 14:04 | A.OFFVIS_ITS ---
Intake Vital Signs 03/15/23 14:12 Height 5 ft 10 in Weight 185 lb BMI 26.5 Intake Visit Reasons: PO - ANKLE ORIF 12/12/22NE Intake Note: Marlon is a 37 year old male who presents today for a post op visit for his ORIF right ankle , 12/12/22 NE. States he cont's to attend P.T. 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 States he has not attempted to walk with out his boot for prolong time and wants to make sure he is doing things right. Allergies No Known Allergies [No Known Allergies*] Allergy (Verified 03/15/23 14:11) HPI PO - ANKLE ORIF 12/12/22NE HPI Details 37-year-old male who presents in the off ice today 3 months status post right ankle open reduction internal fixation, which was performed on 12/12/[address] Burgos. The patient confirms attending physical therapy. He reports he has signed up for strengthening. He states the ankle is feeling better. He reports he has not attempted to ambulate without his boot for prolonged periods of time. He would like to make sure he is doing it correctly and will not re- injury the ankle. Patient works as a nurse at [employer]. He would like to discuss his return to work status. [facility] Family History Father Colon cancer Heart problem HTN (hypertension) Mother No problems noted. Social History Alcohol intake: current Patient Tobacco Use Status: Former Tobacco user Quit Date: 12 years Current occupational status: employed Current occupation: Nurse/ right hand dominant Review of Systems Const All systems reviewed & are unremarkable except as noted in HPI and below Physical Exam Vital Signs: BMI result Body Mass Index 26.5 Const General: cooperative, healthy appearing and no acute distress Resp Effort & Inspection: normal respiratory effort and able to speak in complete se ntences Cardio Rate: regular rate Peripheral pulses: Peripheral pulses 2+ throughout GI Palpation (GI): Soft to palpation Skin Lesions: no lesions Rashes: no rashes Extrem Other: Right ankle: incision site is well approximated and completely healed. No signs of infection. Mild edema lateral malleolus. Able to pronate, supinate, dorsiflex, and plantarflex with mild limitation. Sensation intact. Pedal pulse intact. Assessment & Plan Assessment & Plan (1) Fracture of ankle, bimalleolar, right, closed: Comment: Right ankle ORIF 12/12/2022 NE Code(s): S82.841A - Displaced bimalleolar fracture of right lower leg, initial encounter for closed fracture Qualifiers: Encounter type: subsequent encounter Fracture healing: with routine healing Qualified Code(s): S82.841D - Displaced bimalleolar fracture of right lower leg, subsequent encounter for closed fracture with routine healing Plan Mr. Landis is a 37-year-old male who presents in the office today 3 months status post right ankle open reduction internal fixation, which was performed on 12/12/[address] Burgos. The patient confirms attending physical therapy. He reports he has signed up for strengthening. He states the ankle is feeling better. He reports he has not attempted to ambulate without his boot for prolonged periods of time. He would like to make sure he is doing it correctly and will not re-injury the ankle. Patient works as a nurse at [employer]. He would like to discuss his return to work status. The patient will begin to wean out of the boot into a normal supportive walking shoe. He will continue to work with physical therapy on strengthening. He was given a work note stating he may return to work part-time for no more then 8 hours shifts. Follow up will be in 4 weeks via a telehealth visit, or sooner if needed. Patient Instructions: Scribed for Vandana Blanco PA-C by Aminata Nicholas ophthalmic medical assistant, on 03/15/2023 at 2:06 pm, EST. Coding Level of Care Code Est Pt Level 3 (95921) Diagnoses Closed bimalleolar fracture of right ankle with routine healing, subsequent encounter S82.841D Encounter type: subsequent encounter Fracture healing: with routine healing
[2023-03-15 14:12] VITALS: BMI 26.5
== END 2023-03-15 14:30 | disposition home or self-care (01) ==
PROVIDERS: PCP Nurse Practitioner Family; Visit Provider Physician Assistant
DX: S82.841D Displaced bimalleolar fracture of right lower leg, subsequent encounter for closed fracture with routine healing (principal)
CPT/HCPCS: 99213

== ENCOUNTER → 2023-03-15 13:57 | Outpatient (BNVA) | payer OTHER, SELFPAY | PROVIDERS: PCP Nurse Practitioner Family; Visit Provider Physician Assistant ==

== ENCOUNTER 2023-03-16 13:00 | Outpatient (RCR) | payer OTHER, SELFPAY ==
--- NOTE | 2023-02-12 17:26 | MHC.PT.EP ---
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 He is referred to PT by Vandana Blanco PA-C, with Dx of RIGHT bimalleolar fx with ORIF (DOS: 12/12/22). Patient impairments include pain, swelling, limited ROM, ankle weakness, antalgic gait. Patient current functional limitations are walking unaided, walking on uneven surfaces, ascend/descend stairs, prolonged standing, squating, working. Patient will benefit from skilled PT to address aforementioned impairments and functional limitations to meet established goals. Frequency and Duration: The patient will be seen 2x/week for 6 weeks Short Term Goals: 3 weeks Patient demonstrates consistency and independence with HEP to self manage symptoms. Patient presents without swelling in R ankle; circumferential malleoli measurement 24cm. Group Home Goals: 6 weeks Patient presents with increased R ankle inversion/eversion strength 4+/5 to be able to ambulate on unlevel surfaces without AD. Patient presents with increased R ankle DF 0 degrees to normalize gait pattern without CAM boot and AD 100 ft. Treatment Plan: Modalities to reduce pain, spasms and effusion. Manual therapy to restore motion and function. Therapeutic exercise to improve strength and flexibility. Neuromuscular re-education for posture and balance. Therapeutic activities to return to functional activities of daily living. Electronically signed by: Emelia Dior, PT, DPT Please sign and return to therapist. Thank you for your referral.
--- NOTE | 2023-04-30 16:41 | MHC.PT.DC ---
[facility] [place] Office [place] Office [place] Office [address] Pedro Pablo Souza [address] [phone] F: [phone] F: [phone] F: [phone] F: [phone] Physical Therapy Discharge Report Diagnosis: RIGHT bimalleolar fx with ORIF (DOS: 12/12/22) Date of Surgery: 12/12/2022 Date of Evaluation: 02/12/23 Date of Discharge: 04/30/23 Treatments to Date: 9 Cancellations to Date: No Shows to Date: Discharge Status: Improved Function Independent with HEP Patient Elected to Stop Discharge Summary: Marlon was last seen on 03/16/23. He ceased attending PT on his own accord since he was returning back to work. 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 We discuss that if he has concerns going back or if he goes back and it is too painful or difficult to see provider again. I focused half of the session on manual therapy to improve tissue mobility and improve joint mobility. Also added more WBing activities with soreness, but he was able to complete activities. He remains challenged by static and dynamic balance activities, bending, lunges and prolonged time on R LE. Electronically signed by: Emelia Dior, PT, DPT Please sign and return to therapist. Thank you for your referral.
== END 2023-04-30 16:41 | disposition home or self-care (01) ==
LOC: HO.PT 13:00
PROVIDERS: PCP Nurse Practitioner Family; Visit Provider Physician Assistant
DX: S82.841D Displaced bimalleolar fracture of right lower leg, subsequent encounter for closed fracture with routine healing (principal)
CPT/HCPCS: 97110; 97116; 97140; 97161; 97530

== ENCOUNTER 2023-04-18 10:22 | Outpatient (REF) | payer OTHER, SELFPAY ==
[2023-04-18 13:18] LABS: MANUAL DIFF FLAG NO
[2023-04-18 13:41] LABS: Basophils Absolute Auto 0.1 X10*3/uL (0.0-0.2); Basophils Percent Auto 0.9 % (0-2); Eosinophils Absolute Auto 0.3 X10*3/uL (0.0-0.4); Eosinophils Percent Auto 3.7 % (0-4); Hematocrit 44.5 % (42.0-52.0); Hemoglobin 15.8 g/dl (14.0-18.0); Imm Gran Abs Auto 0.06 X10*3/uL (0.00-0.03); Imm Gran Pct Auto 0.6 % (0.0-0.4); Lymphocytes Absolute Auto 3.8 X10*3/uL (1.2-4.9); Lymphocytes Percent Auto 40.7 % (20-40); Mean Corpuscular HGB Conc 35.5 g/dl (31.0-36.0); Mean Corpuscular Hemoglobin 30.7 pg (27.0-33.0); Mean Corpuscular Volume 86.4 fL (80.0-98.0); Mean Platelet Volume 10.5 fL (9.4-12.4); Monocytes Absolute Auto 0.7 X10*3/uL (0.1-1.2); Neutrophils Absolute Auto 4.3 x10*3/uL (2.0-8.3); Neutrophils Percent Auto 46.1 % (45-73); Platelet Count 195 X10*3/uL (160-400); Red Blood Count 5.15 X10*6/uL (4.60-5.80); Red Cell Distribution Width 12.4 % (11.0-16.0); White Blood Count 9.3 X10*3/uL (4.8-10.8)
[2023-04-18 13:59] LABS: Alanine Aminotransferase 102 U/L (0-40); Albumin Level 4.3 g/dL (3.5-5.0); Alkaline Phosphatase 69 U/L (39-117); Anion Gap 11 (12-20); Aspartate Amino Transferase 57 U/L (5-37); Bilirubin Direct 0.2 mg/dL (0.0-0.5); Bilirubin Total 1.1 mg/dL (0.0-1.0); Blood Urea Nitrogen 11 mg/dL (9-16); Carbon Dioxide 26 mmol/L (22-29); Chloride 106 mmol/L (96-108); Cholesterol 221 mg/dL (<200); Estimated Glomerular Filt Rate > 60; Glucose Random 96 mg/dL (60-115); HDL Cholesterol 34 mg/dL (>40); LDL Cholesterol Calculated 136 mg/dL (<100); Potassium 3.8 mmol/L (3.3-5.1); Sodium 139 mmol/L (135-145); Total Protein 7.1 g/dL (6.5-8.0); Triglycerides 256 mg/dL (<150)
[2023-04-18 14:19] LABS: Thyroid Stimulating Hormone 0.64 uIU/mL (0.32-4.0); Vitamin D 25-OH Total 42.5 ng/mL (>30)
[2023-04-26 06:44] LABS: FT4 by Equilib. Dialysis 1.3 ng/dL (0.9-2.2)
== END 2023-04-18 10:23 | disposition home or self-care (01) ==
LOC: HO.HMGCLDS 10:22
PROVIDERS: Visit Provider Nurse Practitioner Family
DX: F41.1 Generalized anxiety disorder (principal); F33.1 Major depressive disorder, recurrent, moderate; K76.0 Fatty (change of) liver, not elsewhere classified; E55.9 Vitamin D deficiency, unspecified
CPT/HCPCS: 36415; 80048; 80061; 80076; 82306; 84439; 84443; 85025

== ENCOUNTER 2025-02-14 09:49 | Outpatient (AMB) | payer BC, SELFPAY ==
[2025-02-14 10:09] VITALS: BP 122/80; PULSE 62; O2SAT 96; BMI 28.1
--- NOTE | 2025-02-14 10:09 | MHC.OFFWIV ---
Intake Vital Signs 02/14/25 10:09 Height 5 ft 9 in Weight 86.183 kg BMI 28.1 BP 122/80 Blood Pressure Location Lt brachial Position Sitting Pulse 62 Pulse Source Pulse Oximeter Pulse Oximetry (%) 96 Intake Visit Reasons: EP Lower back pain Patient Tobacco Use Status: Former Tobacco user Allergies No Known Allergies (No Known Allergies*) Allergy (Verified 02/14/25 10:11) Do you need a note to return to daycare/school/sports/work: Yes HPI HPI Comments History of Present Illness Details 39 year old male no significant PMHx presents w/ lower back pain in lumbosacral region x about a week worsening. 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 Significant pain is exerienced when patient bends down and then stands back up. No recent trauma but reports 18 years ago he fell off a roof. No saddle anesthesias, changes in bowel habits, urinary/bowel incontinence/ retention, fevers, chills, cp, sob PE- lumbosacal ttp on exam to paraspinous muscles. No saddle anesthesias. Ambulating w/ steady gait. Pain w/ axial loading Hx and pe concerning for facet mediated back pain. Possible spasm. No signs of cord compression, cauda equina, epidural abcess Plan- 5 day course of prednisone and meloxicam Imaging of lumbar spine ordered PCP follow up advised may need to see a specialist if pain persists. [facility] Family History Father Colon cancer Heart problem HTN (hypertension) Mother No problems noted. Social History Alcohol intake: current Patient Tobacco Use Status: Former Tobacco user Current occupational status: employed Current occupation: Nurse/ right hand dominant Physical Exam Exam Exam: Appearance: Alert.? Oriented X3.? No acute distress.? Head: Normocephalic, atraumatic, no step-offs or deformities Eyes: Pupils equal, round and reactive to light.? CVS: Normal heart rate and rhythm.? Pulses normal.? Respiratory: No respiratory distress.? Breath sounds normal.? Abdomen: Soft and nontender.? Skin: Skin warm and dry.? Normal skin color.? Normal skin turgor.? Extremities: No lower extremity edema.? No calf ttp. 5/5 strength to bilateral upper and lower extremities Back: No midline tenderness, no C-spine tenderness, full range of motion, no CVA tenderness bilaterally +lumbosacal ttp on exam to paraspinous muscles. No saddle anesthesias. Ambulating w/ steady gait. + pain w/ axial loading/facet stressign Neuro: Oriented X 3.? No motor deficit.? No sensory deficit. CN 2-12 intact Vital Signs: Last Vital Signs Pulse 62 02/14/25 10:09 BP 122/80 02/14/25 10:09 Pulse Ox 96 02/14/25 10:09 BMI result Body Mass Index 28.1 vss Assessment & Plan Assessment & Plan (1) Lumbosacral pain: Code(s): M54.50 - Low back pain, unspecified Plan Take your medications as prescribed. If you were prescribed antibiotics today, it is important that you take your medication to their entirety, do not skip any doses, do not finish them early. Follow-up with your primary care provider this week. Go to the emergency department with new or worsening symptoms. In case of emergency call 911 Orders: Orders XR lumbar spine 2-3V Today M54.50 - Low back pain, unspecified Medications: New prednisone 40 mg (2 x 20 mg) PO DAILY 10 tabs 0RF 5 days meloxicam 15 mg PO DAILY 30 tabs 0RF pain Coding Level of Care Code Est Pt Level 3 (78216) Diagnoses Lumbosacral pain M54.50
== END 2025-02-14 10:39 | disposition home or self-care (01) ==
PROVIDERS: PCP Nurse Practitioner Family; Visit Provider Physician Assistant
DX: M54.50 Low back pain, unspecified (principal)

== ENCOUNTER 2025-02-14 09:49 | Outpatient (REF) | payer BC, SELFPAY ==
--- NOTE | ~2025-02-14 | XR_ITS ---
CLINICAL HISTORY: M54.50 - Low back pain, unspecified 3 views lumbar spine Comparison: None provided Findings: Normal alignment. No acute fractures or dislocation. Minimal disc space narrowing at L5-S1. IMPRESSION: No acute findings. Minimal disc space narrowing at L5-S1. This document has been electronically signed by: Sabino Suggs MD on 02/14/2025 10:58:13
== END 2025-02-14 09:50 | disposition home or self-care (01) ==
LOC: HO.HMGCX 09:49
PROVIDERS: PCP Nurse Practitioner Family; Visit Provider Physician Assistant
DX: M54.50 Low back pain, unspecified (principal)
CPT/HCPCS: 72100

== ENCOUNTER → 2025-02-14 10:30 | Outpatient (BNV) | payer BC, SELFPAY | PROVIDERS: PCP Nurse Practitioner Family; Visit Provider Radiology Vascular & Interventional Radiology | DX: M51.370 Other intervertebral disc degeneration, lumbosacral region with discogenic back pain only (principal) | CPT/HCPCS: 72100 ==